=== PATIENT | male | born 1940 | race Caucasian/White ===

== ENCOUNTER 2017-07-30 15:00 | Emergency (ER) | payer OTHER ==
--- NOTE | 2017-07-30 15:45 | ED Physician Documentation ---
Dyspnea - HISTORIAN Historian: patient - HPI Stated Complaint: irregular HR Chief Complaint: Dyspnea Additional Information: he was sent here by his dr. He was complaining that when taking his daily walk he was getting more SOA. he wanted to know if he needed to increase his inhaler. His dr office noted tachycardia and sent him here. He has no complaints. he awoke last night sweating, got up took 2 ASA and went back to sleep. Those are his only complaints. On ECG now he is having atrial flutter. he does not feel any palpitations. He has not had this problem before. His rate is between 90's and 120 . Now it appears to have converted to NSR. Onset: other (unknown ) Duration: continues in ED Severity: mild Exacerbated By: nothing Associated Symptoms: none, sweating Further Comments: no - ROS CONST: no problems EYES/ENT: none GI/: none NEURO/PSYCH: denies: headache MS/SKIN/LYMPH: none - PAST HX Lung Disease: asthma Cardiac Disease: none Surgeries/Procedures: none Other History: diabetes Type 2 Allergies/Adverse Reactions: Allergies Allergy/AdvReac Type Severity Reaction Status Date / Time No Known Drug Allergies Allergy Verified 07/30/17 15:36 Home Medications: Ambulatory Orders Medication Instructions Recorded Metformin HCl [Glucophage] 500 mg PO BID 07/30/17 - SOCIAL HX Smoking History: non-smoker Alcohol Use: none Drug Use: none - FAMILY HX Family History: no significant history, other (CVA) - VITAL SIGNS Vital Signs: Vital Signs Temp Pulse Resp BP Pulse Ox 98.6 F 140 H 16 106/76 96 07/30/17 15:26 07/30/17 15:26 07/30/17 15:26 07/30/17 15:26 07/30/17 15:26 - REVIEWED ASSESSMENTS Nursing Assessment Reviewed: Yes Vitals Reviewed: Yes Progress - Progress Progress: spoke with Dr Salazar, director of architecture at [facility], discussed. He recommends Holter and follow up in clinic next few days. Dyspnea Physical Exam - EXAM General Appearance: no acute distress, alert EENT: eye inspection normal, ENT inspection normal, pharynx normal, no signs of dehydration Neck: nml inspection. No: lymphadenopathy Respiratory: no resp. distress, breath sounds nml, no pain on inspiration, speaks full sentences CVS: pulses equal, irregularly irreg. rhythm, occasional extrasystoles Abdomen: non-tender Skin: color nml, no rash Extremities: non-tender, normal range of motion, no evidence of injury, no edema Neuro/Psych: oriented x3, mood/affect nml Discharge Clincal Impression: Elevated brain natriuretic peptide (BNP) level Atrial flutter Qualifiers: Atrial flutter type: unspecified Qualified Code(s): I48.92 - Unspecified atrial flutter Dyspnea Qualifiers: Dyspnea type: dyspnea on exertion Qualified Code(s): R06.09 - Other forms of dyspnea Referrals: Jony,DO Mat [Primary Care Provider] - 2 Days Disposition: 01 HOME, SELF-CARE Decision to Admit: NO Date of Decison to Admit: 07/30/17 Decision Time: 18:18
[2017-07-30 16:49] LABS: BASOPHILS % 0.5 (0.0-1.5); EOSINOPHILS % 3.7 % (0.0-6.8); MEAN CORPUSCULAR HEMOGLOBIN 30.8 pg (28.0-34.0); MEAN CORPUSCULAR VOLUME 96.1 fl (80.0-100.0); MONOCYTES % 6.8 % (0.0-11.0); NEUTROPHILS # 6.6 # k/uL (1.4-7.7)
[2017-07-30 17:04] LABS: eGFR (African) > 60; eGFR (Non-African) > 60
[2017-07-30 18:39] VITALS: BP 113/64
== END 2017-07-30 18:27 | disposition home or self-care (01) ==
LOC: ED 15:00 → EDSTATUS 15:02 → ED 18:27
DX: I48.92 Unspecified atrial flutter (principal); R06.09 Other forms of dyspnea; R79.89 Other specified abnormal findings of blood chemistry
CPT/HCPCS: 80053; 82550; 83880; 84484; 85025; 85610; 85730; 99283; S1016